=== PATIENT | female | born 1995 | race African-American/Black ===

== ENCOUNTER 2017-12-20 14:35 | Inpatient (IN) ==
[2017-12-20] MEDS ORDERED: ONDANSETRON 4 MG/2 ML VIAL IV PRN (16:08)
[2017-12-20] MEDS ORDERED: BUTORPHANOL 2 MG/ML VIAL IV PRN (16:08)
[2017-12-20 17:00] LABS: Basophils % 0.2 % (0.0-0.8); Eosinophils # 0.1 10*3/uL (0.0-0.87); Eosinophils % 1.2 % (0.00-10.9); Hematocrit 30.9 VOL% (35.7-47.0); Hemoglobin 10.2 GM/DL (12.0-16.0); Immature Granulocytes % 0.4 %; Immature Granulocytes Absolute 0.05 #; Lymphocytes # 1.8 10*3/uL (1.4-4.0); Lymphocytes % 16.1 % (21.3-54.2); Mean Corpuscular Hemoglobin 28 PG (27-34); Mean Corpuscular Volume 84.9 FL (87-102); Mean Platelet Volume 9.6 FL (9.6-12.0); Monocytes # 0.8 10*3/uL (0.11-0.8); Monocytes % 7.2 % (1.7-12.7); Neutrophils # 8.4 10*3/uL (1.4-7.4); Neutrophils % 74.9 % (38.7-73.9); Platelet Count 270 T/CUMM (130-400); Red Blood Count 3.64 MC/CUMM (3.8-5.5); Red Cell Distribution Width 15.2 % (9.3-17.3); White Blood Count 11.3 T/CUMM (4-12)
[2017-12-20 17:30] LABS: Alanine Aminotransferase 13 U/L (13-56); Albumin 2.7 G/DL (3.4-5.0); Alkaline Phosphatase 150 U/L (45-117); Aspartate Amino Transferase 14 U/L (0-37); Bilirubin,Total < 0.39 MG/DL (0.2-1.0); Blood Urea Nitrogen 6 MG/DL (7-18); Calcium 8.2 MG/DL (8.5-10.1); Glucose 69 MG/DL (74-106); Potassium 4.2 MMOL/L (3.5-5.1); Sodium 136 MMOL/L (136-145)
[2017-12-20] MEDS ORDERED: FAMOTIDINE 20 MG/2 ML VIAL IV ONE (17:49)
[2017-12-20] MEDS ORDERED: CITRIC ACID/SODIUM CITRATE 30 ML UDCUP PO ONE (17:49)
[2017-12-20] MEDS ORDERED: LACTATED RINGERS 1,000 ML IV ONE (17:49)
[2017-12-20] MEDS ORDERED: PROMETHAZINE 25 MG/1 ML VIAL IM ONE (17:50)
[2017-12-20] MEDS ORDERED: NALOXONE 0.4 MG/ML VIAL IV PRN (17:50)
[2017-12-20] MEDS ORDERED: diphenhydrAMINE 50 MG/1 ML VIAL IV PRN ×2 (17:50)
[2017-12-20] MEDS ORDERED: hydrOXYzine HCL 25 MG/1 ML VIAL IM PRN (17:50)
[2017-12-20] MEDS ORDERED: ePHEDrine 50 MG/ML AMP IV PRN (17:50)
[2017-12-20] MEDS: LACTATED RINGERS 1,000 ML IV SCH ×2 (18:02→20:40)
[2017-12-20] MEDS ORDERED: BUTORPHANOL 1 MG/ML VIAL ONE (18:49)
[2017-12-20] MEDS ORDERED: BUTORPHANOL 1 MG/ML VIAL IV ONE (18:51)
[2017-12-20] MEDS: fentaNYL 2 MCG/ROPIV 0.2% EPID 100 ML EPIDURAL SCH (19:17)
[2017-12-21] MEDS: fentaNYL 2 MCG/ROPIV 0.2% EPID 100 ML EPIDURAL SCH (03:30)
[2017-12-21] MEDS ORDERED: OXYTOCIN/LR 20 UNIT/1,000 ML BAG IV ONE (08:35)
[2017-12-21] MEDS ORDERED: OXYTOCIN/LR 20 UNIT/1,000 ML BAG IV SCH (08:35)
[2017-12-21] MEDS ORDERED: miSOPROStol 200 MCG TABLET ONE (09:48)
[2017-12-21] MEDS ORDERED: LIDOCAINE 1% 50 ML VIAL ONE (09:48)
[2017-12-21] MEDS ORDERED: METHYLERGONOVINE 0.2 MG/1 ML AMP ONE (09:48)
[2017-12-21] MEDS: IBUPROFEN 800 MG TABLET PO PRN (12:46)
[2017-12-21] MEDS: ACETAMINOPHEN/CODEINE 300-30 MG TABLET PO PRN ×2 (12:46→21:00)
[2017-12-21] MEDS: DOCUSATE SODIUM 100 MG CAPSULE PO SCH (20:58)
[2017-12-22] MEDS: IBUPROFEN 800 MG TABLET PO PRN ×2 (01:09→15:33)
[2017-12-22] MEDS: ACETAMINOPHEN/CODEINE 300-30 MG TABLET PO PRN ×2 (01:09→15:34)
[2017-12-22 05:59] LABS: Basophils % 0.2 % (0.0-0.8); Eosinophils # 0.2 10*3/uL (0.0-0.87); Eosinophils % 1.5 % (0.00-10.9); Hematocrit 26.9 VOL% (35.7-47.0); Hemoglobin 8.7 GM/DL (12.0-16.0); Immature Granulocytes % 0.4 %; Immature Granulocytes Absolute 0.05 #; Lymphocytes # 2.3 10*3/uL (1.4-4.0); Lymphocytes % 17.5 % (21.3-54.2); Mean Corpuscular HGB Conc 32.3 GM/DL (32-36); Mean Corpuscular Hemoglobin 28 PG (27-34); Mean Corpuscular Volume 87.3 FL (87-102); Mean Platelet Volume 9.6 FL (9.6-12.0); Monocytes # 0.8 10*3/uL (0.11-0.8); Monocytes % 6.4 % (1.7-12.7); Neutrophils # 9.6 10*3/uL (1.4-7.4); Platelet Count 230 T/CUMM (130-400); Red Blood Count 3.08 MC/CUMM (3.8-5.5); Red Cell Distribution Width 15.2 % (9.3-17.3)
[2017-12-22] MEDS: FERROUS SULFATE 325 MG TABLET PO SCH ×2 (10:11→20:41)
[2017-12-22] MEDS: DOCUSATE SODIUM 100 MG CAPSULE PO SCH ×2 (10:13→20:41)
[2017-12-23] MEDS: ACETAMINOPHEN/CODEINE 300-30 MG TABLET PO PRN ×2 (00:28→07:23)
[2017-12-23 07:17] VITALS: BP 108/70
[2017-12-23] MEDS: IBUPROFEN 800 MG TABLET PO PRN (07:25)
[2017-12-23] MEDS: DOCUSATE SODIUM 100 MG CAPSULE PO SCH (09:58)
[2017-12-23] MEDS: FERROUS SULFATE 325 MG TABLET PO SCH (09:59)
[2017-12-23] MEDS ORDERED: DIPH/TET/ACEL PERT BOOSTER VACCINE 0.5 ML VIAL IM ONE (12:44)
== END 2017-12-23 14:20 | disposition home or self-care (01) | DRG 560 ==
LOC: N.LDOUT 14:35 → N.LD 14:38 → N.OB 12-21 12:15
PROVIDERS: ADMIT Obstetrics & Gynecology; ATTEND Obstetrics & Gynecology